=== PATIENT | male | born 1990 ===

== ENCOUNTER 2018-03-11 07:15 | Inpatient (IN) | payer OTHER ==
[~2018-03-11] VITALS: Ht 165.1 cm; Wt 136.1 kg
[2018-03-11] MEDS ORDERED: AVAPRO300 MG PO (08:28)
[2018-03-11] MEDS ORDERED: NORFLEX PO (08:29)
[2018-03-11] MEDS ORDERED: GABAPENTIN800 MG PO (08:29)
[2018-03-11] MEDS ORDERED: CATALAN PO (08:29)
[2018-03-21] MEDS ORDERED: GABAPENTIN800 MG PO (11:31)
[2018-03-21] MEDS ORDERED: DOCUSATE SODIU100 MG PO (11:32)
[2018-03-21] MEDS ORDERED: AMOX-CLAV 875-1 EACH PO (11:32)
[2018-03-21] MEDS ORDERED: PERCOCET 5-3251 EACH PO (11:33)
[2018-03-21] MEDS ORDERED: CLONAZEPAM1 MG PO (11:33)
== END 2018-03-21 20:02 | DRG 455 ==
LOC: SURG 03-20 07:15 → O/R 03-20 07:19 → PED 03-20 13:23 → SURG 03-20 16:00 → PED 03-21 20:02
PROVIDERS: Orthopaedic Surgery Orthopaedic Surgery of the Spine
PROC: 0SG0071 Fusion of Lumbar Vertebral Joint with Autologous Tissue Substitute, Posterior Approach, Posterior Column, Open Approach (ICD-10-PCS; 2018-03-20)
PROC: 0ST40ZZ Resection of Lumbosacral Disc, Open Approach (ICD-10-PCS; 2018-03-20)
PROC: 0SG30AJ Fusion of Lumbosacral Joint with Interbody Fusion Device, Posterior Approach, Anterior Column, Open Approach (ICD-10-PCS; 2018-03-20)
PROC: 07DS3ZZ Extraction of Vertebral Bone Marrow, Percutaneous Approach (ICD-10-PCS; 2018-03-20)
PROC: 0SG30A0 Fusion of Lumbosacral Joint with Interbody Fusion Device, Anterior Approach, Anterior Column, Open Approach (ICD-10-PCS; principal; 2018-03-20 16:00)
DX: M48.07 Spinal stenosis, lumbosacral region (principal); M47.27 Other spondylosis with radiculopathy, lumbosacral region; M43.17 Spondylolisthesis, lumbosacral region; M51.17 Intervertebral disc disorders with radiculopathy, lumbosacral region; I10 Essential (primary) hypertension